=== PATIENT | female | born 1980 | race African-American/Black ===

== ENCOUNTER 2016-12-24 17:04 | Emergency (ER) | payer MEDICAID, OTHER ==
[~2016-12-24] VITALS: Ht 167.6 cm; Wt 73.0 kg
[~2016-12-24 17:04] MED LIST: ACET325T33 PO; BACTDS PO; MULTI PO; NAPR-688 PO; ONDA4TAB35 PO
[2016-12-24 17:11] VITALS: Ht 167.6 cm; Wt 73.0 kg
[2016-12-24] MEDS ORDERED: KETOROLAC 15 MG INJ IV STA (17:38)
[2016-12-24] MEDS ORDERED: SOD CHLORIDE 0.9% 1,000 ML IV STA (17:38)
--- NOTE | 2016-12-24 18:09 | ERD ---
ER Documentation Chief Complaint Date/Time DATE: 12/24/16 TIME: 18:06 Chief Complaint Complains of dizzines x 3 days HPI 36-year-old female presents to the emergency department complaining of lightheadedness and nonbloody diarrhea for the past 2 days. Patient states that she has not been able to eat much. She denies any fevers, abdominal pain, vomiting, chest pain or shortness of breath. Patient states that she has not taken any medications. ROS All systems reviewed and are negative except as per history of present illness. Medications Home Meds Active Scripts Cephalexin* (Keflex*) 500 Mg Capsule, 500 MG PO TID for 7 Days, CAP Prov:IGNACIO TAYLOR PA-C 12/24/16 Ibuprofen* (Ibuprofen*) 400 Mg Tablet, 400 MG PO Q6H Y for PAIN, #30 TAB Prov:IGNACIO TAYLOR PA-C 12/24/16 Electrolyte,Oral (Pedialyte) 1,000 Ml Solution, 100 ML PO Q6 for 2 Days, ML Prov:IGNACIO TAYLOR PA-C 12/24/16 Acetaminophen* (Tylenol*) 325 Mg Tablet, 2 TAB PO Q8 Y for PAIN AND OR ELEVATED TEMP, #20 TAB Prov:MARTÍNEZ JIM PA-C 10/09/15 Ondansetron Hcl* (Zofran* ODT) 4 mg -ODT Tab.disper, 4 MG PO Q6 Y for NAUSEA AND /OR VOMITING, #10 TAB Prov:MARTÍNEZ JIM PA-C 10/09/15 Naproxen* (Naproxen*) 500 Mg Tablet, 500 MG PO BID, #14 TAB Prov:SHAKIR CABRERA DO 06/13/15 Sulfamethoxazole-Trimethoprim* (Bactrim* DS) 800-160 Mg Tab, 1 TAB PO BID for 5 Days, TAB Prov:SHAKIR CABRERA DO 06/13/15 Reported Medications Multivitamins* (Theragran*) 1 Tab Tab, 1 TAB PO DAILY, TAB 06/13/15 Allergies Allergies: Coded Allergies: No Known Allergies (Verified Allergy, Unknown, 12/24/16) PMhx/Soc Medical and Surgical Hx: pt denies Medical Hx, pt denies Surgical Hx Hx Alcohol Use: Yes (socially) Hx Substance Use: No Hx Tobacco Use: No Smoking Status: Never smoker Physical Exam Vitals Vital Signs Date Time Temp Pulse Resp B/P Pulse Ox O2 Delivery O2 Flow Rate FiO2 12/24/16 17:11 98.6 80 20 122/65 98 Physical Exam GENERAL: well-developed/well-nourished, in no apparent distress, non-toxic appearing HENT: NC/AT, moist mucous membranes EYES: Conjunctiva normal NECK: Supple, no lymphadenopathy PULM: CTA bilaterally, no rales, rhonchi, or wheezing heard CV: Normal S1S2, RRR, good capillary refill GI: Soft, non-distended, tender to palpation Normal bowel sounds, no masses or organomegaly felt on exam No gross peritonitis, no bruits Negative Rovsing, negative Barragan, negative McBurney's point, Negative CVAT BACK: No masses EXT: No clubbing, cyanosis, or edema NEURO: Alert and Orientated SKIN: Intact, normal turgor PSYCH: Normal mood and mentation Result Diagram: 12/24/16 1974 Results 24 hrs Laboratory Tests Test 12/24/16 17:52 12/24/16 17:55 Urine Color YELLOW Urine Clarity CLOUDY Urine pH 5.0 Urine Specific Emery 1.016 Urine Ketones NEGATIVEmg/dL Urine Nitrite NEGATIVEmg/dL Urine Bilirubin NEGATIVEmg/dL Urine Urobilinogen NEGATIVEmg/dL Urine Leukocyte Esterase 3+Bobby/ul Urine Microscopic RBC 2/HPF Urine Microscopic WBC 37/HPF Urine Squamous Epithelial Cells MANY/HPF Urine Bacteria FEW/HPF Urine Mucus FEW/HPF Urine Hemoglobin NEGATIVEmg/dL Urine Glucose NEGATIVEmg/dL Urine Total Protein NEGATIVEmg/dl White Blood Count 5.410^3/ul Red Blood Count 4.0710^6/ul Hemoglobin 11.0g/dl Hematocrit 33.8% Mean Corpuscular Volume 83.0fl Mean Corpuscular Hemoglobin 27.0pg Mean Corpuscular Hemoglobin Concent 32.5g/dl Red Cell Distribution Width 14.3% Platelet Count 59707^3/UL Mean Platelet Volume 11.3fl Neutrophils % 46.1% Lymphocytes % 40.3% Monocytes % 11.4% Eosinophils % 1.3% Basophils % 0.7% Nucleated Red Blood Cells % 0.0/100WBC Neutrophils # 2.510^3/ul Lymphocytes # 2.210^3/ul Monocytes # 0.610^3/ul Eosinophils # 0.110^3/ul Basophils # 0.010^3/ul Nucleated Red Blood Cells # 0.010^3/ul Current Medications Medications (Trade) Dose Ordered Sig/Anton Route PRN Reason Start Time Stop Time Status Last Admin Dose Admin Sodium Chloride (NS) 1,000 ml @ 1,000 mls/hr Q1H STAT IV 12/24/16 17:38 12/24/16 18:37 12/24/16 18:10 Ketorolac Tromethamine (Toradol) 15 mg ONCE STAT IV 12/24/16 17:38 12/24/16 17:40 DC 12/24/16 18:10 Ceftriaxone Sodium (Rocephin) 1 gm ONCE STAT IM 12/24/16 18:26 12/24/16 18:27 DC Procedures/MDM Is a 36-year-old female presenting to the emergency department complaining of nonbloody diarrhea and lightheadedness for the past 2 days. Patient likely has a viral gastroenteritis with dehydration and found to have a urinary tract infection. Patient was nontender in her abdomen, she is well appearing to be discharged home to follow-up with primary care physician with return precautions. IV access was established, patient was given 1 L of fluids and Toradol. Toradol was given ceftriaxone in the ED and a prescription for Keflex as an outpatient. EKG: read and signed off by myself and Rate/Rhythm: [Normal Sinus Rhythm 67bpm] QRS, ST, T-waves: [No changes consistent w/ acute ischemia] Impression: [No evidence of ischemia or arrhythmia] Departure Diagnosis: Primary Impression: Dizziness Additional Impressions: UTI (urinary tract infection) Diarrhea Condition: Stable IGNACIO TAYLOR PA-C Dec 24, 2016 18:09
[2016-12-24 18:10] LABS: BASOPHILS % 0.7 % (0.0-2.0); EOSINOPHILS # 0.1 10^3/ul (0.0-0.5); EOSINOPHILS % 1.3 % (0.0-7.0); HEMATOCRIT 33.8 % (37.0-47.0); LYMPHOCYTES # 2.2 10^3/ul (0.8-2.9); LYMPHOCYTES % 40.3 % (15.0-51.0); MEAN CORPUSCULAR HGB CONC 32.5 g/dl (32.0-37.0); MEAN PLATELET VOLUME 11.3 fl (7.4-10.4); MONOCYTE # 0.6 10^3/ul (0.3-0.9); MONOCYTES % 11.4 % (0.0-11.0); NEUTROPHIL # 2.5 10^3/ul (1.6-7.5); NEUTROPHILS % 46.1 % (39.0-77.0); PLATELET COUNT 226 10^3/UL (140-415); RED BLOOD COUNT 4.07 10^6/ul (4.20-5.40); RED CELL DISTRIBUTION WIDTH 14.3 % (11.5-14.5); WHITE BLOOD COUNT 5.4 10^3/ul (4.8-10.8)
[2016-12-24] MEDS ORDERED: ELEC100080 PO (18:10)
[2016-12-24] MEDS ORDERED: IBUP400T22 PO (18:10)
[2016-12-24 18:16] LABS: ADD UMIC YES; UR ASCORBIC ACID NEGATIVE (NEGATIVE); UR BACTERIA FEW /HPF (NONE SEEN); UR BILIRUBIN (Dip) NEGATIVE (NEGATIVE); UR BLOOD (Dip) NEGATIVE (NEGATIVE); UR CLARITY CLOUDY (CLEAR); UR COLOR YELLOW (YELLOW); UR GLUCOSE (Dip) NEGATIVE (NEGATIVE); UR KETONES (Dip) NEGATIVE (NEGATIVE); UR LEUKOCYTE ESTERASE (Dip) 3+ Leu/ul (NEGATIVE); UR MUCUS FEW /HPF (NONE SEEN); UR NITRITE (Dip) NEGATIVE (NEGATIVE); UR RBC 2 /HPF (0-5); UR SPECIFIC GRAVITY (Dip) 1.016 (1.003-1.030); UR SQUAMOUS EPITHELIAL CELL MANY /HPF (FEW); UR TOTAL PROTEIN (Dip) NEGATIVE (NEGATIVE); UR UROBILINOGEN (Dip) NEGATIVE (NEGATIVE)
[2016-12-24] MEDS ORDERED: CEFTRIAXONE 1 GM INJ IM STA (18:26)
[2016-12-24] MEDS ORDERED: CEPH-443 PO (18:27)
[2016-12-24 18:31] LABS: ALBUMIN 4.3 g/dl (3.3-4.9); ALBUMIN/GLOBULIN RATIO 1.19; BILIRUBIN,INDIRECT 0.3 mg/dl (0-1.1); BILIRUBIN,TOTAL 0.3 mg/dl (0.2-1.3); CALCIUM 9.4 mg/dl (8.4-10.2); CREATININE 1.07 mg/dl (0.44-1.00); POTASSIUM 3.8 mmol/L (3.5-5.1); TOTAL PROTEIN 7.9 g/dl (6.1-8.1)
[2016-12-24 19:12] VITALS: BP 116/78; PULSE 60; RESP 15; TEMP 98.6
== END 2016-12-24 19:14 | disposition home or self-care (01) ==
LOC: FTE 17:04
DX: R42 Dizziness and giddiness (principal); N39.0 Urinary tract infection, site not specified; R19.7 Diarrhea, unspecified
CPT/HCPCS: 36415; 80053; 81001; 83690; 85025; 93005; 96372; 96374; J0696; J1885; J7030; Z7502

== ENCOUNTER 2017-12-18 10:26 | Emergency (ER) | END 2017-12-18 13:51 | disposition home or self-care (01) ==

== ENCOUNTER 2018-12-01 15:03 | Emergency (ER) | payer SELFPAY ==
[~2018-12-01] VITALS: Ht 172.7 cm; Wt 74.1 kg
[~2018-12-01 15:03] MED LIST changes: +BUTA1CAP38 PO; +CEPH-443 PO; +ELEC100080 PO; +IBUP-1541 PO; +METO10TA92 PO
[2018-12-01 15:08] VITALS: BP 145/63; PULSE 73; RESP 18; Ht 172.7 cm; Wt 74.1 kg
[2018-12-01] MEDS ORDERED: ONDANSETRON (ODT) 4 MG TAB ODT STA (17:13)
[2018-12-01] MEDS ORDERED: ACETAMINOPHEN 325 MG TAB PO ONE (17:30)
[2018-12-01] MEDS ORDERED: IBUPROFEN 600 MG TAB PO ONE (17:30)
== END 2018-12-01 17:48 | disposition home or self-care (01) ==
LOC: FTE 15:03
DX: G44.209 Tension-type headache, unspecified, not intractable (principal)
CPT/HCPCS: 99283